=== PATIENT | female | born 1970 ===

== ENCOUNTER 2017-09-03 09:04 | Day surgery (SDC) | payer OTHER ==
[~2017-09-03] VITALS: Ht 152.4 cm; Wt 77.9 kg
[~2017-09-03 09:04] MED LIST: Adipex-P37.5 MG; CETI5; MIRALAX17 GM; [UNRECOGNIZED DRUG - OTHER]
[2017-09-03] MEDS ORDERED: Hair, Skin & N1 EACH (09:36)
== END 2017-09-03 10:35 | disposition home or self-care (01) ==
LOC: ORSCSDS 09:04
PROVIDERS: Internal Medicine Gastroenterology
PROC: 0DBP8ZX Excision of Rectum, Via Natural or Artificial Opening Endoscopic, Diagnostic (ICD-10-PCS; principal; 2017-09-03 10:15)
DX: K62.5 Hemorrhage of anus and rectum (principal); K62.1 Rectal polyp; K64.8 Other hemorrhoids; K57.30 Diverticulosis of large intestine without perforation or abscess without bleeding; K59.00 Constipation, unspecified; F41.9 Anxiety disorder, unspecified; J45.909 Unspecified asthma, uncomplicated; Z79.899 Other long term (current) drug therapy
CPT/HCPCS: 88305; J7120

== ENCOUNTER → 2022-01-01 | Outpatient (CLI) | payer OTHER ==
[~2022-01-01] MED LIST changes: +Hair, Skin & N1 EACH
[2022-01-06 16:08] LABS: HPV 16 Negative (Negative); HPV 18 Negative (Negative); HPV OTHER HR TYPES Negative (Negative)
== END | disposition home or self-care (01) ==
LOC: LAB 08:00 → LAB SHORT 08:00
PROVIDERS: Nurse Practitioner Family
DX: Z01.419 Encounter for gynecological examination (general) (routine) without abnormal findings (principal)
CPT/HCPCS: 87624; G0145